=== PATIENT | male | born 1965 ===

== ENCOUNTER 2016-09-08 07:16 | Day surgery (SDC) | payer MEDICAID ==
[2016-09-08 07:44] VITALS: BMI 28.0
[2016-09-08] MEDS ORDERED: Propofol 10 mg/ml Inj (20 ML) ONE (10:03)
[2016-09-08] MEDS ORDERED: Lactated Ringer's 500 ML IV SCH (10:15)
[2016-09-08 10:45] VITALS: TEMP 98
[2016-09-08 11:16] VITALS: O2SAT 100
[2016-09-08 11:17] VITALS: PULSE 68; RESP 12
[2016-09-08 11:32] VITALS: BP 111/67
== END 2016-09-08 11:25 | disposition home or self-care (01) ==
LOC: C.ENDO 07:16
PROVIDERS: ATTEND Internal Medicine Gastroenterology
DX: K20.9 Esophagitis, unspecified (principal); R12 Heartburn; R19.7 Diarrhea, unspecified; K64.8 Other hemorrhoids; B96.81 Helicobacter pylori [H. pylori] as the cause of diseases classified elsewhere
CPT/HCPCS: 43239; 45380; 82948; 88305; 88312; 88313; 88342; J2001; J2704; J3010; J7120

== ENCOUNTER 2018-01-28 10:29 | Emergency (ER) | payer MEDICAID ==
[2018-01-28 10:29] VITALS: BMI 27.1
[2018-01-28 10:34] VITALS: BP 135/84; PULSE 86; RESP 20; TEMP 97.3; O2SAT 100
[2018-01-28] MEDS ORDERED: Amoxicillin-Clav 875-125 mg Tab PO STA (11:22)
[2018-01-28] MEDS ORDERED: Bacitracin 500 Units/gm Oint Foilpak UD TOP ONE (11:22)
[2018-01-28] MEDS ORDERED: Tdap Vaccine 0.5 ml Vial (10-64 yrs) IM ONE ×2 (11:22→11:29)
[2018-01-28] MEDS ORDERED: Amoxicillin-Clav 875-125 mg Tab PO ONE (11:28)
[2018-01-28] MEDS ORDERED: Bacitracin 500 Units/gm Oint Foilpak UD ONE (11:28)
--- NOTE | 2018-01-28 11:52 | C.PDOC ---
History Of Present Illness 52 y/o male presents to ED after being attacked by his dog 30 minutes prior to arrival. According to patient, he states that his dog was being attacked by another dog. He tried to separate them but the dog ended up cutting his left hand. Patient reports that he was able to speak to the crm marketing analyst of the other dog and the crm marketing analyst states that his dog is up to date with all his vaccinations. Denies any other injuries, numbness, or weakness. Time Seen by Provider: 01/28/18 11:02 Chief Complaint (Nursing): Bite History Per: Patient History/Exam Limitations: no limitations Onset/Duration Of Symptoms: Hrs Current Symptoms Are (Timing): Still Present Past Medical History Reviewed: Historical Data, Nursing Documentation, Vital Signs Vital Signs: Last Vital Signs Temp 97.3 F L 01/28/18 10:33 Pulse 86 01/28/18 10:33 Resp 20 01/28/18 10:33 BP 135/84 01/28/18 10:33 Pulse Ox 100 01/28/18 10:33 - Medical History PMH: HTN Denies: Chronic Kidney Disease Family History: States: No Known Family Hx - Social History Hx Alcohol Use: No Hx Substance Use: No - Immunization History Hx Tetanus Toxoid Vaccination: No Hx Influenza Vaccination: No Hx Pneumococcal Vaccination: No Review Of Systems Constitutional: Negative for: Fever, Chills Cardiovascular: Negative for: Chest Pain Respiratory: Negative for: Shortness of Breath Skin: Positive for: Other (Left hand abrasion). Negative for: Rash Neurological: Negative for: Weakness, Numbness Physical Exam - Physical Exam Appears: Non-toxic, No Acute Distress Skin: Warm, Dry, Other (0.5 cm superficial abrasion to L hand) Head: Atraumatic, Normacephalic Eye(s): bilateral: Normal Inspection Oral Mucosa: Moist Neck: Supple Extremity: Capillary Refill (less than 2 seconds) Pulses: Left Radial: Normal Neurological/Psych: Oriented x3, Normal Speech, Normal Motor, Normal Sensation Gait: Steady ED Course And Treatment O2 Sat by Pulse Oximetry: 100 (RA) Pulse Ox Interpretation: Normal Medical Decision Making Medical Decision Making: Plan: --Adacel --Augmentin --Bacitracin Wound was irrigated with sterile saline and betadine. sterile was then applied. Disposition - Disposition Referrals: Derek Kirkland MD [Staff Provider] - Disposition: HOME/ ROUTINE Disposition Time: 11:49 Condition: STABLE Additional Instructions: Clean the wound twice a day with soap and water and apply bacitracin. Take antibiotics until completed. Return if worsened. Prescriptions: Amoxicillin/Clavulanate [Augmentin 875 MG-125 MG] 1 tab PO BID #14 tab Bacitracin Ointment [Bacitracin] 30 gm TOP BID #1 tube Instructions: Animal Bites (DC) Forms: [employer] ([place] Citizen) - Clinical Impression Clinical Impression: Dog bite, Animal bite wound - PA / ACCOUNT ANALYST / Resident Statement MD/DO has reviewed & agrees with the documentation as recorded. - Scribe Statement The provider has reviewed the documentation as recorded by the Scribirving Arias All medical record entries made by the Avelinoibirving were at my direction and personally dictated by me. I have reviewed the chart and agree that the record accurately reflects my personal performance of the history, physical exam, medical decision making, and the department course for this patient. I have also personally directed, reviewed, and agree with the discharge instructions and disposition.
== END 2018-01-28 11:31 | disposition home or self-care (01) ==
LOC: C.ER 10:29
DX: S61.452A Open bite of left hand, initial encounter (principal); W54.0XXA Bitten by dog, initial encounter; I10 Essential (primary) hypertension; Z23 Encounter for immunization